=== PATIENT | male | born 1970 | race Caucasian/White ===

== ENCOUNTER 2019-11-03 14:03 | Emergency (ER) | payer SELFPAY ==
[~2019-11-03] VITALS: Ht 170.2 cm; Wt 92.1 kg
--- NOTE | 2019-11-03 14:08 | NUR ---
BREN [id number] From Home "Drinking at home- Now have Shakes. Last drank this am, patient states "has been drinking for 2 weeks". to ER bed 12, hooked to monitor, changed to hgosp gown, warm blanket provided, awaiting MD horowitz.
[2019-11-03] MEDS ORDERED: FOLIC ACID 1 MG TABLET PO ONE (14:30)
[2019-11-03] MEDS ORDERED: THIAMINE HCL 100 MG TABLET PO ONE (14:30)
[2019-11-03] MEDS ORDERED: IV NS 0.9% 1,000 ML IV ONE (14:30)
[2019-11-03] MEDS ORDERED: LORAZEPAM 0.5 MG TABLET PO ONE (14:30)
[2019-11-03] MEDS ORDERED: FOLIC ACID 1 MG TABLET ONE (14:31)
[2019-11-03] MEDS ORDERED: LORAZEPAM 0.5 MG TABLET ONE (14:31)
[2019-11-03] MEDS ORDERED: THIAMINE HCL 100 MG TABLET ONE (14:31)
[2019-11-03 14:34] LABS: BASOPHILS # (AUTO) 0.1 /CMM (0.0-0.2); BASOPHILS % (AUTO) 0.8 % (0.0-2.0); EOSINOPHILS % (AUTO) 0.3 % (0.0-6.0); HEMATOCRIT 46 % (39-51); HEMOGLOBIN 15.9 g/dL (13.5-17.5); LYMPHOCYTES # (AUTO) 2.4 /CMM (0.8-4.8); LYMPHOCYTES % (AUTO) 35.5 % (20.0-44.0); MEAN CORPUSCULAR HGB CONC 35 g/dl (31.0-36.0); MEAN CORPUSCULAR VOLUME 93 fL (80-96); MONOCYTES # (AUTO) 0.4 /CMM (0.1-1.30); MONOCYTES % (AUTO) 6.6 % (2.0-12.0); NEUTROPHILS # (AUTO) 3.8 /CMM (1.8-8.9); NEUTROPHILS % (AUTO) 56.8 % (43.0-81.0); PLATELET COUNT (AUTO) 153 /CMM (150-450); RED BLOOD CELL COUNT(AUTO) 4.96 MIL/uL (4.5-6.0); WHITE BLOOD COUNT (AUTO) 6.7 K/uL (4.3-11.0)
[2019-11-03 14:49] LABS: ALBUMIN 3.9 g/dL (3.4-5.0); BILIRUBIN,TOTAL 1.2 mg/dL (0.2-1.0); CALCIUM, SERUM 8.3 mg/dL (8.5-10.1); CREATININE 0.9 mg/dL (0.6-1.3); POTASSIUM 3.5 mmol/L (3.5-5.1); TOTAL PROTEIN, SERUM 7.2 g/dL (6.4-8.2)
--- NOTE | 2019-11-03 15:05 | NUR ---
FIRST AID INSTRUCTOR AT BEDSIDE
[2019-11-03] MEDS ORDERED: DILTIAZEM HCL 50 MG IV IV ONE (15:30)
[2019-11-03] MEDS ORDERED: DILTIAZEM HCL IV 125 MG in IV NS 0.9% 100 ML IV PRN (15:30)
[2019-11-03] MEDS ORDERED: LORAZEPAM INJ 2 MG/ML VIAL IV ONE (15:30)
--- NOTE | 2019-11-03 15:30 | NUR ---
ADDENDUM: Intravenous End Time Documentation: Cardizem 125 mg/ 0.09 100 NacL) Start time: 1530 PM End time: 1730 PM IV site: LAC PIV # 18 Port: # 1
[2019-11-03] MEDS ORDERED: LORAZEPAM INJ 2 MG/ML VIAL ONE (15:44)
[2019-11-03] MEDS ORDERED: DILTIAZEM HCL 25 MG IV ONE (15:44)
--- NOTE | 2019-11-03 15:46 | NUR ---
PATIENT GIVEN ATIVAN IVP 1MG PER MD ORDER. WASTED ATIVAN 1MG IV WITH IVETH HORTON RN.
--- NOTE | 2019-11-03 15:46 | NUR ---
PT WAS GIVEN ATIVAN 1MG IV PER ERMD VERBAL ORDER. WASTED ATIVAN IV 1MG WITH ANGELICA JIMENEZ RN
--- NOTE | 2019-11-03 15:50 | NUR ---
RAC 18G IVP INFILTRATED, STARTED NEW IV PERIPHERAL LINE AT LAC 18G
--- NOTE | 2019-11-03 16:41 | NUR ---
PATIENT STATES PLAN TO DO AMA, DR HOLLINS AT BEDSIDE EXPLAINING RISKS AND CONSEQUENCES INVOLVED IN LEAVING HOSP., PATIENT UNDECIDED AND WILL DO SOME CALLS. WILL LET US KNOW LATER
--- NOTE | 2019-11-03 16:49 | NUR ---
EPIC PAGED ITS GARRET.
--- NOTE | 2019-11-03 16:59 | NUR ---
PATIENT DECIDES TO LEAVE. SIGNED AMA FORM.
--- NOTE | 2019-11-03 17:18 | NUR ---
IV removed. Catheter intact and site benign. Pressure and 4x4 applied to site. No bleeding noted.Patient does not wish to proceed with medical care recommended by Dr. Apollo Toure. Patient given information related to possible complications, up to and including , which could occur as a result of leaving the hospital at this time. Patient verbalizes understanding of risks involved due to leaving against medical advice. Patient has signed AMA form.
[2019-11-03 17:20] VITALS: BP 110/157
[2019-11-03] MEDS ORDERED: ASPIRIN 81 MG TAB.CHEW PO ONE (17:30)
== END 2019-11-03 17:30 | disposition left against medical advice (07) ==
LOC: ER 14:04
DX: I21.4 Non-ST elevation (NSTEMI) myocardial infarction (principal); I48.91 Unspecified atrial fibrillation; R11.0 Nausea; K70.9 Alcoholic liver disease, unspecified; F10.10 Alcohol abuse, uncomplicated; I10 Essential (primary) hypertension; Y90.9 Presence of alcohol in blood, level not specified
CPT/HCPCS: 36415; 71045; 80053; 80307; 83880; 84484; 85025; 93005; 96365; 96366; 96375; 96376; 99291; J2060; J3490 ×2; J7030 ×2; G0480